=== PATIENT | female | born 1990 | race Caucasian/White ===

== ENCOUNTER 2017-05-17 08:13 | Inpatient (IN) | payer OTHER ==
--- NOTE | 2017-05-17 09:59 | NUR ---
05/17/17 0959 Alyssia Cooper 0953 PATIENT ARRIVES TO PACU SHAKING, EYES OPEN, BUT DOES NOT FOLLOW COMMANDS. MASK AT 6 LITERS, OXYGEN AT 100%.
--- NOTE | 2017-05-31 20:35 | OR ---
[facility] [address], [place] [address] Signed DATE OF SERVICE: 05/17/2017 DIAGNOSES: 1. Apparent term , in active labor. 2. History of prior . 3. No care. 4. Obesity in . 5. Marijuana use during . POSTOPERATIVE DIAGNOSES: 1.Apparent term , in active labor. 2. History of prior . 3. No care. 4. Obesity in . 5. Marijuana use during . PROCEDURE PERFORMED: Repeat low transverse section. ANESTHESIA: General with tap block . VISION THERAPIST: Mnasi Schilling MD ESTIMATED BLOOD LOSS: 800 mL. COMPLICATIONS: None. 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 Cervix was completely dilated. Delivery of viable male 9 pounds 4 ounces in direct OP position with Apgars of 8 and 9 at 1 and 5 minutes respectively. Centrally inserted 3-vessel cord. Minimal scar tissue. Normal tubes and ovaries bilaterally. Hemostasis at the end the procedure. COMPLICATIONS: None. INDICATIONS: Ms. Means is a 27-year-old, G2, P1 0-0-1, white female, with zero care, who presents labor and delivery complaining of contractions and possible spontaneous rupture of membranes. The patient was admitted, heart rate was in the 140s and on cervical exam, she was found to be completely dilated with high station and intact. Patient was consented for repeat low transverse section. Risks, benefits, alternatives were discussed in detail with the patient. Patient understands the risks and Electronically Signed By: MACARIO SHORE DO 05/31/17 2035 PATIENT NAME: DANAE MEANS OPERATIVE REPORT DATE OF : 89 PHYSICIAN: MACARIO SHORE DO REPORT #: [id number] REPORT IS CONFIDENTIAL AND NOT TO BE RELEASED WITHOUT AUTHORIZATION [facility] [address], [place] [address] Signed wished to proceed with the procedure. TECHNIQUE: The patient was taken to the operating room. Time-out was Performed to confirm correct patient, correct procedure. Patientwas prepped and draped in the supine position with a bump on her right hip. A Vazquez catheter was inserted. ICPs were on and running, and 2 g Ancef were given preoperatively per SCIP protocol. General anesthesia was adequately established and a Pfannenstiel skin incision was made using a surgical scalpel. The incision was carried down to and through the fascia using the scalpel. The rectus muscles were divided in the midline and the peritoneum was entered bluntly. Peritoneal incision was extended bilaterally using blunt sharp dissection and lower uterine segment was identified. An incision was made in the lower uterine segment and thin meconium fluid was noted. The surgeon's hand was placed into the uterine cavity. The head elevated in the abdomen and noted to be in the direct OP position. No nuchal cord was noted. Delivery of the vertex was delivered with the assistance of fundal pressure. The shoulders were broad and the anterior arm was swept medially and the anterior shoulder was delivered. The remainder of the delivered with the assistance of fundal pressure. Upon delivery, the oral nasopharynx were bulb suctioned. The cord doubly clamped And cut. was handed to awaiting pediatric team for further care.Cord gases were obtained and cord blood was obtained for routine analysis. Centrally inserted three-vessel cord was noted. Placenta was manually extracted without complication. The uterus was cleared of any remaining products of conception and clot and repaired using 0-Vicryl in a running locked manner. A small midline tear at the lower uterine segment was noted down towards the cervix and this was repaired using 0-Vicryl in a running locked manner. The urine was noted to be clear and the tear was noted to be well away from the bladder. The hysterotomy was then closed in 2nd layer of 0 Vicryl suture in a horizontal manner with good hemostasis. One small area of oozing was noted and this was made hemostatic with lwujnfu-co-tyfwy stitch. The pelvis was irrigated and again confirmed to be hemostatic. The peritoneum was reapproximated after ACell sheet was placed over the hysterotomy. The peritoneum was reapproximated with 2-0 Vicryl in a running nonlocked fashion. The rectus was examined, found to be hemostatic and rectus muscles were gently reapproximated using 0 Vicryl suture. The fascia was then reapproximated in a running nonlocked manner using 0 Vicryl. Subcu was reapproximated with 3-0 Vicryl after ensuring hemostasis, the skin was reapproximated with surgical wendy. The uterus was Crede'd for minimal blood clot and estimated blood loss was approximately 800 mL. We discussed patient's postoperative pain control plan with anesthesia and they recommended a tap block, which was then placedby anesthesia. Please see their records for details. The patient was then taken to the PACU in good and stable condition. Electronically Signed By: MACARIO SHORE DO 05/31/17 2769 PATIENT NAME: DANAE MEANS OPERATIVE REPORT DATE OF : 89 PHYSICIAN: MACARIO SHORE DO REPORT #: [id number] REPORT IS CONFIDENTIAL AND NOT TO BE RELEASED WITHOUT AUTHORIZATION [facility] [address] [place], [place] [address] Signed Sponge, needle, and instrument counts correct x2 at the end procedure. Dr. Schilling was present and participated in the delivery of the patient. Macario Shore DO JDW/Avila /[id number] Electronically Signed By: MACARIO SHORE DO 05/31/172034 PATIENT NAME: CLARYDANAE OPERATIVE REPORT DATE OF : 89 PHYSICIAN: MACARIO SHORE DO REPORT #: [id number] REPORT IS CONFIDENTIAL AND NOT TO BE RELEASED WITHOUT AUTHORIZATION
== END 2017-05-19 15:35 | disposition home or self-care (01) | DRG 765 ==
LOC: FBCO 08:13 → FBC 08:14
PROVIDERS: ADMIT Obstetrics & Gynecology
PROC: 10D00Z1 Extraction of Products of Conception, Low, Open Approach (ICD-10-PCS; principal; 2017-05-17 08:41)
PROC: 3E0234Z Introduction of Serum, Toxoid and Vaccine into Muscle, Percutaneous Approach (ICD-10-PCS; 2017-05-18)
DX: O34.211 Maternal care for low transverse scar from previous cesarean delivery (principal); O99.324 Drug use complicating childbirth; D62 Acute posthemorrhagic anemia; N85.8 Other specified noninflammatory disorders of uterus; F12.90 Cannabis use, unspecified, uncomplicated; O99.214 Obesity complicating childbirth; E66.9 Obesity, unspecified; O90.81 Anemia of the puerperium; Z23 Encounter for immunization; Z37.0 Single live birth
CPT/HCPCS: 01961; 36415; 64447; 76942; 82803; 85025; 85027; 86762; 86780; 86850; 86900; 86901; 87340; 90715; C1763; J0330; J0690; J1170; J1644; J1885; J2250; J2405; J2590; J2704; J2795; J3010